=== PATIENT | female | born 1935 | race Caucasian/White ===

== ENCOUNTER 2017-12-03 21:28 | Inpatient (IN) | payer MEDICARE ==
[2017-12-03] MEDS ORDERED: Potassium Chloride 20 mEq ER Tab PO PRN (21:56)
[2017-12-03] MEDS ORDERED: Potassium Chloride 40 MEQ, Lidocaine 1% 20mL Vial 25 MG in Sodium Chloride 0.9% 250 ML IV PRN (21:56)
[2017-12-03] MEDS ORDERED: Mag Sulfate 2gm/50mL Premix 2 GM/50 ML BAG IV PRN (21:56)
[2017-12-03] MEDS ORDERED: Morphine Sulfate 2 mg/mL 1mL Syr IVP PRN (21:56)
--- NOTE | 2017-12-03 22:09 | ED Physician Chart ---
ED Chief Complaint/HPI - Patient Information Date Seen:: 12/03/17 Time Seen:: 21:50 Chief Complaint:: agitation and increased confusion History of Present Illness:: Patient's had increased agitation and increased confusion for the last 2 hours. Last September patient had a fracture of her left ankle and back. Prior to that she was slightly confused only. Allergies:: Allergies Allergy/AdvReac Type Severity Reaction Status Date / Time No Known Allergies Allergy Verified 12/03/17 22:02 Historian:: EMS, Family Member Review:: Nurse's Note Reviewed, Transfer documents Reviewed ED Review of Systems - Review of Systems General/Constitutional: No fever, No chills Skin: No skin lesions Head: No headache Eyes: No loss of vision ENT: No earache Neck: No neck pain, No swelling Cardio Vascular: No chest pain Pulmonary: No SOB GI: No nausea, No vomiting G/U: No dysuria Musculoskeletal: No bone or joint pain, No back pain Endocrine: No polyuria, No polydipsia Psychiatric: Prior psych history Hematopoietic: No bruising Allergic/Immuno: No urticaria Neurological: No syncope ED Past Medical History - Past Medical History Past Medical History: Dementia, Other (status post urinary tract infection; GERD ; major depression; sleep apnea) Family History: None Social History: Non Smoker, No Alcohol, Care Facility Surgical History: other (left ankle) Psychiatricy History: Dementia Medication: Reviewed Family Medical History - Family Member Daughter Ethnicity: Living Status: Still Living ED Physical Exam - Physical Examination General/Constitutional: Well-developed, well-nourished, Alert Other Gen/Cons comments:: Patient is agitated and keeps repeating help me, help me. Head: Atraumatic Eyes: Lids, conjuctiva normal, PERRL Skin: Nl inspection, No rash, No skin lesions, No ecchymosis ENMT: External ears, nose nl, TM canals nl Neck: No mass Respiratory: Clear to Auscultation, No Wheeze/Rhonchi/Rales Cardio Vascular: RRR, No murmur, gallop, rubs, NL S1 S2 GI: No tenderness/rebounding/guarding, No organomegaly, No hernia, Normal BS's : No CVA tenderness Other Extremities comments:: Cast left lower leg Neuro/Psych: No focal deficits ED Labs/Radiology/EKG Results - Lab Results Results: Laboratory Results - last 24 hr 12/03/17 12/03/17 22:15 22:15 WBC 10.2 RBC 3.87 Hgb 12.4 Hct 36.9 L MCV 95.5 MCH 31.9 H MCHC Differential 33.5 RDW 14.6 Plt Count 307 MPV 8.0 Neutrophils % 66.1 Lymphocytes % 17.8 L Monocytes % 12.1 H Eosinophils % 3.2 Basophils % 0.8 Sodium 137 Potassium 4.3 Chloride 103 Carbon Dioxide 28.1 Anion Gap 10.2 BUN 45 H Creatinine 1.2 Est GFR ( Amer) TNP Est GFR (Non-Af Amer) TNP BUN/Creatinine Ratio 37.5 Glucose 173 H Calcium 9.8 Magnesium 2.1 - Radiology Results Results: CXR negative - EKG Interpretations Rate & Rhythm: atrial flutter/fibrillation with a rate of 88 [place]: normal ED Septic Shock - . Is Septic Shock (SBP<90, OR Lactate>4 mmol\L) present?: No ED Reassessment (Disposition) - Diagnosis Diagnosis:: Diagnosis altered mental status; plan admit to [facility] ED Discharge Plan - Patient Disposition Admit/Discharge/Transfer: Other Care w/in this hosp
[2017-12-03 22:23] LABS: % BASOPHILS 0.8 % (0.0-2.0); % EOSINOPHILS 3.2 % (0.0-5.0); % LYMPHOCYTES 17.8 % (20.0-50.0); % MONOCYTES 12.1 % (2.0-10.0); % NEUTROPHILS 66.1 % (40.0-80.0); BASOPHILE ABSOLUTE 0.1 Th/cumm (0-0.2); EOSINOPHILE ABSOLUTE 0.3 Th/cmm (0.1-0.4); HEMATOCRIT 36.9 % (41.0-60); HEMOGLOBIN 12.4 gm/dL (12-16); LYMPHOCYTE ABSOLUTE 1.8 Th/cmm (1.5-3.0); MEAN CELL VOLUME 95.5 fl (81-100); MEAN CORPUSCULAR HEMOGLOBIN 31.9 pg (27.0-31.0); MEAN CORPUSCULAR HGB CONC 33.5 pg (28.0-36.0); MONOCYTE ABSOLUTE 1.2 Th/cmm (0.3-1.0); NEUTROPHILE ABSOLUTE 6.8 Th/cmm (1.8-8.0); PLATELET COUNT 307 Th/cmm (150-400); RED BLOOD COUNT 3.87 Mil/cmm (3.80-5.20); RED CELL DISTRIBUTION WIDTH 14.6 % (11.5-20.0); WHITE BLOOD COUNT 10.2 Th/cmm (4.8-10.8)
[2017-12-03 22:37] LABS: ANION GAP 10.2 (7.0-16.0); BUN - UREA NITROGEN 45 mg/dL (7-25); CALCIUM SERUM 9.8 mg/dL (8.6-10.3); CARBON DIOXIDE 28.1 mEq/L (21.0-31.0); CHLORIDE 103 mEq/L (98-107); CREATININE - SERUM 1.2 mg/dL (0.6-1.2); GLUCOSE 173 mg/dL (70-105); MAGNESIUM 2.1 mg/dL (1.9-2.7); POTASSIUM SERUM 4.3 mEq/L (3.5-5.1); SODIUM SERUM 137 mEq/L (136-145)
[2017-12-03 23:24] LABS: URINE MICROSCOPIC INDICATED? YES; URINE SOURCE CATH
[2017-12-03] MEDS ORDERED: Sodium Chloride 0.9% 1,000 ML IV ONE (23:33)
[2017-12-03 23:38] LABS: URINE BILIRUBIN NEGATIVE (NEGATIVE); URINE BLOOD NEGATIVE (NEGATIVE); URINE GLUCOSE (UA) NEGATIVE (NEGATIVE); URINE KETONE NEGATIVE (NEGATIVE); URINE LEUKOCYTE ESTERASE NEGATIVE (NEGATIVE); URINE NITRATE NEGATIVE (NEGATIVE); URINE PH 5.5 (4.6 - 8.0); URINE PROTEIN NEGATIVE (NEGATIVE); URINE UROBILINOGEN 0.2 E.U./dL (0.2 - 1.0)
[2017-12-03 23:41] LABS: URINE CLARITY CLEAR (CLEAR); URINE COLOR ORANGE; URINE RBC 0-2 /hpf (0-5); URINE WBC 0-2 /hpf (0-5)
[2017-12-03 23:42] LABS: URINE BACTERIA FEW /hpf (NONE SEEN); URINE EPITHELIAL CELLS FEW /lpf (FEW)
[2017-12-03] MEDS ORDERED: Sodium Chloride 0.9% 1,000 ML IV SCH (23:45)
[2017-12-04 03:56] VITALS: BP 118/69
--- NOTE | 2017-12-04 07:40 | Diagnostic Imaging Report ---
Portable chest x-ray HISTORY: Shortness of breath The heart size is difficult to assess with portable technique in a poor inspiration, but appears to be increased. Atherosclerotic calcification seen within the aorta. No acute focal pulmonary processes. IMPRESSION: 1. No acute focal pulmonary processes 2. Suggestion cardiomegaly with atherosclerotic vascular changes
[2017-12-04] MEDS ORDERED: Haloperidol Lactate 5 mg/mL 1mL Vial ONE (09:02)
[2017-12-04] MEDS ORDERED: Haloperidol Lactate 5 mg/mL 1mL Vial IM ONE (09:07)
[2017-12-04] MEDS: Diltiazem CD 180 mg C24 PO SCH (09:09)
[2017-12-04] MEDS: Aspirin 81mg Chewable Tab PO SCH (09:09)
[2017-12-04] MEDS ORDERED: chlorproMAZINE 25 mg/mL 2mL Amp IM ONE (11:52)
[2017-12-04] MEDS ORDERED: chlorproMAZINE 25 mg/mL 2mL Amp ONE (11:52)
--- NOTE | 2017-12-04 11:52 | History and Physical ---
History of Present Illness - HPI Chief Complaint: ALOC HPI: An 82 year old female presents from [facility] with the complaint of ALOC for one week. The patient was recently admitted for encephalopathy and for PT due to her left LE orif. She was acting appropriately upon admission, however, she became more confused and combative towards the staff. Vital Signs: Last Vital Signs Temp 97 F 12/04/17 06:47 Pulse 86 12/04/17 06:47 Resp 19 12/04/17 06:47 BP 136/73 12/04/17 06:47 Pulse Ox 94 12/04/17 06:47 Past Medical History Cardiovascular: Report: AFIB, HTN, Hyperlipidemia Pulmonary: Report: No Pertinent Hx DRUG WORKER: Report: No Pertinent Hx, Other (aloc) GI: Report: No Pertinent Hx Psych: Report: Anxiety, Depression, Psychosis Musculoskeletal: Report: Osteoarthritis, Other (left le pain) Rheumatologic: Report: No pertinent Hx Infectious Disease: Report: No Pertinent Hx Renal/: Report: No Pertinent Hx Endocrine: Report: No Pertinent Hx Dermatology: Report: No Pertinent Hx Family Medical History - Family Member Daughter History Unknown: Yes Ethnicity: Living Status: Still Living Social History Smoke: No Alcohol: None Drugs: None Lives: With Family Domestic Violence: Negative - Medications Home Medications: Home Medication Medication Instructions Recorded Type Acetaminophen [Tylenol] 650 mg PO Q6HR PRN 12/03/17 History Aspirin 81 mg PO DAILY 12/03/17 History Atorvastatin Calcium [Lipitor] 10 mg PO HS 12/03/17 History Citalopram Hydrobromide 10 mg PO DAILY 12/03/17 History [Citalopram HBr] Diltiazem HCl [Cartia Xt] 180 mg PO DAILY 12/03/17 History Donepezil Hcl [Aricept] 5 mg PO HS 12/03/17 History Famotidine [Pepcid*] 40 mg PO DAILY 12/03/17 History Gabapentin 600 mg PO BID 12/03/17 History Hydrocodone/APAP 10 mg/325 mg 1 tab PO Q6H PRN 12/03/17 History [[place] 10 mg/325 mg] Lisinopril 10 mg PO DAILY 12/03/17 History Memantine [Namenda] 5 mg PO BID 12/03/17 History Pyridoxine [Vitamin B6] 50 mg PO DAILY 12/03/17 History Risperidone [Risperdal*] 0.25 mg PO BID 12/03/17 History Trazodone HCl 50 mg PO HS PRN 12/03/17 History - Allergies Allergies/Adverse Reactions: Allergies Allergy/AdvReac Type Severity Reaction Status Date / Time No Known Allergies Allergy Verified 12/03/17 22:02 Review of Systems - Review of Systems Review of Systems: Unable to obtain due to the patients acute encephalopathy Constitutional: Report: No Significant Eyes: Report: No Significant ENT: Report: No Significant Respiratory: Report: No Significant Cardiovascular: Report: No Significant Gastrointestinal: Report: No Significant Genitourinary: Report: No Significant Musculoskeletal: Report: No Significant Skin: Report: No Significant Neurological: Report: No Significant Physical Exam - Physical Exam HEENT: Report: Pale Conjunctiva Neck: Report: Within normal limits Cardiovascular Systems: Report: +s1/s2 noted, Regular, Rate and Rhythm Respiratory: Report: Breath Sounds are within normal limits, Clear to Auscultation of lung ames Abdomen: Report: Bowel Sounds are within normal limits Back: Report: Inspection of back is within normal limits. Extremities: Report: Other (Left LE cast in place) Skin: Report: Color of skin is within normal limits - Assessment Assessment: metabolic encephalopathy impulse control do mdd margot oa muscle weakness unsteady gait - Plan Plan: admit to [facility]. Zosyn was discontinued. Levaquin was started. Psych is following. Home emdications have been continued. Psychotrophic medications as needed. Pain control.
--- NOTE | 2017-12-04 17:33 | Psychosocial Evaluation ---
DATE OF SERVICE: 12/04/2017 JUSTIFICATION FOR HOSPITALIZATION: Increased agitation, increased confusion, yelling, screaming. CHIEF COMPLAINT: "I want to go back. I want to go back to you. I want to go back to you." HISTORY OF PRESENT ILLNESS: An 82-year-old female who I saw at [facility] yelling, screaming unruly behaviors, yelling nonsensically, yelling over and over again stating, "I want to go back to you. I want to go back to you." The patient is not answering any questions, is not a very good historian. PAST PSYCHIATRIC HISTORY: It seems she has a history of dementia, psychosis, unspecified. Mood, unspecified. Anxiety, unspecified. Unruly behaviors at the shelter. SOCIAL HISTORY: is involved. Daughter is involved. The patient had been living at [facility], but could not be cared for given her behaviors. MEDICAL HISTORY: GERD, UTI, and sleep apnea. MEDICATIONS: Noted. MENTAL STATUS EXAMINATION: Stated age, yelling, screaming, not answering any questions, repetitive, no suicidal gestures, seems ruminative, possibly delusional, poor insight, and poor judgment. PROVISIONAL DIAGNOSES: 1. Dementia with behaviors. 2. Psychosis, unspecified. 3. Mood, unspecified. 4. Anxiety, unspecified. MEDICAL: Please see full H and P. RECOMMENDATIONS AND PLAN: The patient is on risperidone with a little efficacy. We will consider Depakote. Given her ongoing symptoms, she is not safe for discharge. CONDITIONS FOR DISCHARGE: Improved mood, improved affect, cessation of her screaming and yelling and psychotic signs and symptoms. [facility]# [id number]
[2017-12-04] MEDS: Atorvastatin Calcium 10 MG TAB PO SCH (21:07)
[2017-12-05] MEDS: Hydrocodone/APAP 10 mg/325 mg Tab PO PRN (05:48)
[2017-12-05 07:07] LABS: EOSINOPHILE ABSOLUTE 0.2 Th/cmm (0.1-0.4); HEMATOCRIT 35.2 % (41.0-60); HEMOGLOBIN 11.8 gm/dL (12-16); LYMPHOCYTE ABSOLUTE 1.4 Th/cmm (1.5-3.0); MANUAL DIFF REQUIRED? YES; MEAN CELL VOLUME 94.9 fl (81-100); MEAN CORPUSCULAR HEMOGLOBIN 31.8 pg (27.0-31.0); MEAN CORPUSCULAR HGB CONC 33.4 pg (28.0-36.0); MONOCYTE ABSOLUTE 1.2 Th/cmm (0.3-1.0); NEUTROPHILE ABSOLUTE 4.6 Th/cmm (1.8-8.0); PLATELET COUNT 282 Th/cmm (150-400); RED BLOOD COUNT 3.71 Mil/cmm (3.80-5.20); RED CELL DISTRIBUTION WIDTH 13.9 % (11.5-20.0)
[2017-12-05 07:15] LABS: WHITE BLOOD COUNT 7.4 Th/cmm (4.8-10.8)
[2017-12-05 07:42] LABS: ANION GAP 7.5 (7.0-16.0); BUN - UREA NITROGEN 34 mg/dL (7-25); CALCIUM SERUM 9.6 mg/dL (8.6-10.3); CARBON DIOXIDE 27.6 mEq/L (21.0-31.0); CHLORIDE 105 mEq/L (98-107); CREATININE - SERUM 0.7 mg/dL (0.6-1.2); GLUCOSE 165 mg/dL (70-105); POTASSIUM SERUM 4.1 mEq/L (3.5-5.1); SODIUM SERUM 136 mEq/L (136-145)
[2017-12-05] MEDS ORDERED: Haloperidol Lactate 5 mg/mL 1mL Vial IM ONE (08:02)
[2017-12-05] MEDS ORDERED: Haloperidol Lactate 5 mg/mL 1mL Vial ONE (08:02)
[2017-12-05 09:20] LABS: EOSINOPHIL 1 % (0-5); LYMPHOCYTE 17 % (20-50); MONOCYTE 17 % (2-10); NEUTROPHILS 65 % (40-80); TOTAL CELLS COUNTED 100
[2017-12-05 09:21] LABS: PLATELET ESTIMATE ADEQUATE (NORMAL)
[2017-12-05] MEDS: Aspirin 81mg Chewable Tab PO SCH ×2 (09:21→09:37)
[2017-12-05] MEDS: Diltiazem CD 180 mg C24 PO SCH ×2 (09:21→09:37)
--- NOTE | 2017-12-05 16:54 | Progress Notes ---
DATE: 12/05/[address] Everardo Mahmood. Case was discussed with staff of the patient, reviewed records. This is an 82-year-old female who was admitted yesterday. She came from [facility], was seen by Dr. Mahmood. Today, she was yelling and screaming, unruly behavior. She continues to yell and scream this morning on the unit, not making sense. Unable to respond to any specific questions or participate in meaningful conversation, diagnosed with dementia, very irritable, very poor insight, needing redirection and I already have given her an order for Haldol, Ativan and Benadryl. She is still yelling and screaming. Dr. Mahmood initiated Seroquel on her; however, I signed the consent this morning, so she could take it and we will see how it affected her. She is on Aricept 5 mg at bedtime, Neurontin 600 mg twice a day. She is on Seroquel 12.5 mg twice a day and 25 mg at bedtime and I can really increase the dose yet to see how she takes it and we will continue to work with the patient in group therapy, milieu therapy, adjust medication as needed. JOB# [id number]
[2017-12-05] MEDS: Atorvastatin Calcium 10 MG TAB PO SCH (21:16)
[2017-12-06 07:06] LABS: EOSINOPHILE ABSOLUTE 0.2 Th/cmm (0.1-0.4); HEMATOCRIT 36.9 % (41.0-60); HEMOGLOBIN 12.4 gm/dL (12-16); MANUAL DIFF REQUIRED? YES; MEAN CELL VOLUME 95.1 fl (81-100); MEAN CORPUSCULAR HGB CONC 33.6 pg (28.0-36.0); MEAN PLATELET VOLUME 7.8 fl; MONOCYTE ABSOLUTE 1.2 Th/cmm (0.3-1.0); NEUTROPHILE ABSOLUTE 4.3 Th/cmm (1.8-8.0); PLATELET COUNT 298 Th/cmm (150-400); RED BLOOD COUNT 3.88 Mil/cmm (3.80-5.20); RED CELL DISTRIBUTION WIDTH 13.9 % (11.5-20.0); WHITE BLOOD COUNT 7.7 Th/cmm (4.8-10.8)
[2017-12-06 07:17] LABS: ANION GAP 13.3 (7.0-16.0); BUN - UREA NITROGEN 28 mg/dL (7-25); CALCIUM SERUM 9.7 mg/dL (8.6-10.3); CARBON DIOXIDE 27.7 mEq/L (21.0-31.0); CHLORIDE 102 mEq/L (98-107); CREATININE - SERUM 0.7 mg/dL (0.6-1.2); GLUCOSE 125 mg/dL (70-105); SODIUM SERUM 139 mEq/L (136-145)
[2017-12-06] MEDS: Diltiazem CD 180 mg C24 PO SCH (10:08)
[2017-12-06] MEDS: Aspirin 81mg Chewable Tab PO SCH (10:08)
[2017-12-06 11:41] LABS: LYMPHOCYTE 27 % (20-50); MONOCYTE 14 % (2-10); NEUTROPHILS 59 % (40-80); TOTAL CELLS COUNTED 100
[2017-12-06 11:42] LABS: PLATELET ESTIMATE ADEQUATE (NORMAL)
[2017-12-06] MEDS ORDERED: Guaifenesin DM 10 ML UDC PO PRN (18:55)
[2017-12-06] MEDS: Atorvastatin Calcium 10 MG TAB PO SCH (21:22)
--- NOTE | 2017-12-06 22:16 | Progress Notes ---
DATE: 12/06/[address] Everardo Mahmood. Case was discussed with staff of the patient, reviewed records. The patient is a bit calmer today. She is able to eat. Her family was here feeding her. She is sleeping better, but however, continues to be unpredictable and impulsive with episodes of severe agitation, yelling and screaming. No side effects with the medication, no sedation, no nausea. I did increase her Seroquel dose yesterday to 25 mg at bedtime and 12.5 mg twice a day with no side effects, no sedation, no nausea and extrapyramidal symptoms. We will continue to work with the patient in group therapy, milieu therapy, adjust medication as needed. JOB# [id number]
[2017-12-07 09:35] LABS: % BASOPHILS 0.1 % (0.0-2.0); % EOSINOPHILS 1.2 % (0.0-5.0); % LYMPHOCYTES 25.6 % (20.0-50.0); % MONOCYTES 12.3 % (2.0-10.0); % NEUTROPHILS 60.8 % (40.0-80.0); EOSINOPHILE ABSOLUTE 0.1 Th/cmm (0.1-0.4); HEMATOCRIT 36.6 % (41.0-60); HEMOGLOBIN 12.4 gm/dL (12-16); MEAN CELL VOLUME 94.6 fl (81-100); MEAN CORPUSCULAR HEMOGLOBIN 32.1 pg (27.0-31.0); MEAN CORPUSCULAR HGB CONC 33.9 pg (28.0-36.0); MEAN PLATELET VOLUME 7.7 fl; NEUTROPHILE ABSOLUTE 4.8 Th/cmm (1.8-8.0); PLATELET COUNT 281 Th/cmm (150-400); RED BLOOD COUNT 3.87 Mil/cmm (3.80-5.20); WHITE BLOOD COUNT 7.9 Th/cmm (4.8-10.8)
--- NOTE | 2017-12-07 09:42 | Diagnostic Imaging Report ---
CHEST X-RAY: AP view INDICATION: Coughing COMPARISON: 12/03/2017 FINDINGS: Low lung volumes are noted with no focal consolidation or effusions. Chronic lung changes are noted with left basal subsegmental atelectasis or scarring. Cardiomegaly is noted with atherosclerosis. IMPRESSION: Chronic interstitial lung changes and low lung volumes. No focal consolidation identified Cardiomegaly and atherosclerotic vascular disease.
[2017-12-07 09:48] LABS: ANION GAP 11.5 (7.0-16.0); BUN - UREA NITROGEN 21 mg/dL (7-25); CALCIUM SERUM 9.3 mg/dL (8.6-10.3); CARBON DIOXIDE 26.2 mEq/L (21.0-31.0); CHLORIDE 104 mEq/L (98-107); CREATININE - SERUM 0.7 mg/dL (0.6-1.2); GLUCOSE 194 mg/dL (70-105); POTASSIUM SERUM 3.7 mEq/L (3.5-5.1); SODIUM SERUM 138 mEq/L (136-145)
[2017-12-07] MEDS: Aspirin 81mg Chewable Tab PO SCH (16:11)
[2017-12-07] MEDS: Diltiazem CD 180 mg C24 PO SCH (16:11)
--- NOTE | 2017-12-07 19:04 | Progress Notes ---
DATE: 12/07/2017 SUBJECTIVE: The patient in the hospital with increased agitation, increased confusion, stating "take me now, take me now, take me now" does not know where she is, does not know why she is here, does not know that she is in the hospital, just states that she is in [place], yelling and screaming nonsensically, highly impulsive, unpredictable, history of dementia with behavioral disturbances. Over the weekend, Dr. Aguero is noting that the patient remains symptomatic, odd, yelling and screaming. ASSESSMENT: The patient remains symptomatic, still odd, bizarre, appearing despairing, still with ongoing symptoms. PLAN: We will continue to monitor. We will be increasing her Seroquel night time dosing to 37.5 mg. JOB# [id number]
[2017-12-07] MEDS: Atorvastatin Calcium 10 MG TAB PO SCH (21:40)
[2017-12-08] MEDS: Hydrocodone/APAP 10 mg/325 mg Tab PO PRN (04:44)
[2017-12-08 10:27] LABS: % BASOPHILS 0.5 % (0.0-2.0); % EOSINOPHILS 1.4 % (0.0-5.0); % LYMPHOCYTES 31.3 % (20.0-50.0); % MONOCYTES 14.6 % (2.0-10.0); % NEUTROPHILS 52.2 % (40.0-80.0); EOSINOPHILE ABSOLUTE 0.1 Th/cmm (0.1-0.4); HEMATOCRIT 36.8 % (41.0-60); HEMOGLOBIN 12.5 gm/dL (12-16); LYMPHOCYTE ABSOLUTE 2.3 Th/cmm (1.5-3.0); MEAN CELL VOLUME 94.3 fl (81-100); MEAN CORPUSCULAR HEMOGLOBIN 32.2 pg (27.0-31.0); MEAN CORPUSCULAR HGB CONC 34.1 pg (28.0-36.0); MEAN PLATELET VOLUME 7.8 fl; MONOCYTE ABSOLUTE 1.1 Th/cmm (0.3-1.0); PLATELET COUNT 264 Th/cmm (150-400); RED CELL DISTRIBUTION WIDTH 13.6 % (11.5-20.0); WHITE BLOOD COUNT 7.5 Th/cmm (4.8-10.8)
[2017-12-08 10:48] LABS: ANION GAP 7.9 (7.0-16.0); BUN - UREA NITROGEN 23 mg/dL (7-25); CALCIUM SERUM 9.3 mg/dL (8.6-10.3); CARBON DIOXIDE 26.5 mEq/L (21.0-31.0); CHLORIDE 106 mEq/L (98-107); CREATININE - SERUM 0.7 mg/dL (0.6-1.2); GLUCOSE 162 mg/dL (70-105); POTASSIUM SERUM 3.4 mEq/L (3.5-5.1); SODIUM SERUM 137 mEq/L (136-145)
[2017-12-08] MEDS: Aspirin 81mg Chewable Tab PO SCH (17:05)
[2017-12-08] MEDS: Diltiazem CD 180 mg C24 PO SCH (17:05)
--- NOTE | 2017-12-08 17:56 | Progress Notes ---
DATE: 12/08/2017 The patient still has agitation, responding to internal stimuli, talking to self, highly pressured, still yelling and asking over and over again, "what is her name, what is her name, what is her name," I do not know who she is talking about. Staff concerned given her ongoing psychotic behaviors. ASSESSMENT: The patient with pressured speech, restless, yelling, still psychotic. MEDICATIONS: Noted. PLAN: We will continue to monitor. The patient remains highly symptomatic. Given ongoing symptoms, she is not safe for a lower level of care at this time. I will make a small adjustment to her Seroquel and increase nighttime Seroquel to 50 mg. [facility]# [id number]
[2017-12-08] MEDS: Atorvastatin Calcium 10 MG TAB PO SCH (21:11)
[2017-12-09] MEDS: Aspirin 81mg Chewable Tab PO SCH (08:49)
[2017-12-09] MEDS: Diltiazem CD 180 mg C24 PO SCH (08:54)
--- NOTE | 2017-12-09 10:36 | General Progress Note ---
Subjective - Review of Systems Service Date: 12/09/17 Subjective: Pt seen and eval. has labile mood. BS have been fluctuating. Per daughter's request, I called her and answered all her questions. Upon further investigation, daughter admitted she made up the TB story because she wanted to make sure her mom's lungs are clear. I discussed chest x ray results with her. Also, confirmed that the pt has never been diagnoses with TB. Provided reassurance to daughter. No n,v,d or cp. No fevers or chills. No cough. Objective - Results Result Diagrams: 12/08/17 10:00 12/08/17 10:00 Recent Labs: Laboratory Last Values WBC 7.5 Th/cmm (4.8-10.8) 12/08/17 10:00 RBC 3.90 Mil/cmm (3.80-5.20) 12/08/17 10:00 Hgb 12.5 gm/dL (12-16) 12/08/17 10:00 Hct 36.8 % (41.0-60) L 12/08/17 10:00 MCV 94.3 fl (81-100) 12/08/17 10:00 MCH 32.2 pg (27.0-31.0) H 12/08/17 10:00 MCHC Differential 34.1 pg (28.0-36.0) 12/08/17 10:00 RDW 13.6 % (11.5-20.0) 12/08/17 10:00 Plt Count 264 Th/cmm (150-400) 12/08/17 10:00 MPV 7.8 fl 12/08/17 10:00 Neutrophils % 52.2 % (40.0-80.0) 12/08/17 10:00 Lymphocytes % 31.3 % (20.0-50.0) 12/08/17 10:00 Monocytes % 14.6 % (2.0-10.0) H 12/08/17 10:00 Eosinophils % 1.4 % (0.0-5.0) 12/08/17 10:00 Basophils % 0.5 % (0.0-2.0) 12/08/17 10:00 Neutrophils (Manual) 59 % (40-80) 12/06/17 06:36 Lymphocytes 27 % (20-50) 03/04/18 06:36 Monocytes 14 % (2-10) H 12/06/17 06:36 Eosinophils 1 % (0-5) 12/05/17 06:45 Platelet Estimate ADEQUATE (NORMAL) 12/06/17 06:36 Sodium 137 mEq/L (136-145) 12/08/17 10:00 Potassium 3.4 mEq/L (3.5-5.1) L 12/08/17 10:00 Chloride 106 mEq/L (98-107) 12/08/17 10:00 Carbon Dioxide 26.5 mEq/L (21.0-31.0) 12/08/17 10:00 Anion Gap 7.9 (7.0-16.0) 12/08/17 10:00 BUN 23 mg/dL (7-25) 12/08/17 10:00 Creatinine 0.7 mg/dL (0.6-1.2) 12/08/17 10:00 Est GFR ( Amer) TNP 12/08/17 10:00 Est GFR (Non-Af Amer) TNP 12/08/17 10:00 BUN/Creatinine Ratio 32.9 12/08/17 10:00 Glucose 162 mg/dL (70-105) H 12/08/17 10:00 Hemoglobin A1c % 5.0 % (4.0-6.0) 12/03/17 22:15 Calcium 9.3 mg/dL (8.6-10.3) 12/08/17 10:00 Magnesium 2.1 mg/dL (1.9-2.7) 12/03/17 22:15 Urine Source CATH 12/03/17 23:20 Urine Color ORANGE 12/03/17 23:20 Urine Clarity CLEAR (CLEAR) 12/03/17 23:20 Urine pH 5.5 (4.6 - 8.0) 12/03/17 23:20 Ur Specific [place] 1.025 (1.005-1.030) 12/03/17 23:20 Urine Protein NEGATIVE mg/dL (NEGATIVE) 12/03/17 23:20 Urine Glucose (UA) NEGATIVE mg/dL (NEGATIVE) 12/03/17 23:20 Urine Ketones NEGATIVE mg/dL (NEGATIVE) 12/03/17 23:20 Urine Blood NEGATIVE (NEGATIVE) 12/03/17 23:20 Urine Nitrate NEGATIVE (NEGATIVE) 12/03/17 23:20 Urine Bilirubin NEGATIVE (NEGATIVE) 12/03/17 23:20 Urine Urobilinogen 0.2 E.U./dL (0.2 - 1.0) 12/03/17 23:20 Ur Leukocyte Esterase NEGATIVE (NEGATIVE) 12/03/17 23:20 Urine RBC 0-2 /hpf (0-5) 12/03/17 23:20 Urine WBC 0-2 /hpf (0-5) 12/03/17 23:20 Ur Epithelial Cells FEW /lpf (FEW) 12/03/17 23:20 Urine Bacteria FEW /hpf (NONE SEEN) 12/03/17 23:20 - Physical Exam Vitals and I&O: Vital Signs Temp 97.5 F 12/09/17 07:10 Pulse 113 12/09/17 08:54 Resp 19 12/09/17 07:10 BP 120/72 12/09/17 08:53 Pulse Ox 94 12/09/17 07:10 Intake & Output 12/08/17 12/09/17 12/09/17 18:59 06:59 18:59 Intake Total 980 250 Balance 980 250 Intake: Oral 980 250 Other: # Voids 3 2 # Bowel Movements 0 0 Active Medications: Current Medications Acetaminophen (Tylenol) 650 mg PO Q6H PRN PRN Reason: HEADACHE/TEMP ABOVE 100F Stop: 02/01/18 21:55 Acetaminophen/Hydrocodone Bitart ([place] 10 Mg/325 Mg) 1 tab PO Q6H PRN PRN Reason: Pain (Moderate) Stop: 02/02/18 06:52 Last Admin: 12/08/17 04:44 Dose: 1 tab Aspirin (Aspirin Chewable) 81 mg PO DAILY [facility] Stop: 02/02/18 08:59 Last Admin: 12/09/17 08:49 Dose: 81 mg Atorvastatin Calcium (Lipitor) 10 mg PO HS [facility]ADIA PRN Reason: Protocol Stop: 02/02/18 20:59 Last Admin: 12/08/17 21:11 Dose: 10 mg Diltiazem HCl (Cardizem Cd) 180 mg PO DAILY [facility] Stop: 02/02/18 08:59 Last Admin: 12/09/17 08:54 Dose: 180 mg Docusate Sodium (Colace) 100 mg PO BID PRN PRN Reason: Constipation Stop: 02/01/18 21:55 Donepezil HCl (Aricept) 5 mg PO HS [facility] Stop: 02/02/18 20:59 Last Admin: 12/08/17 21:11 Dose: 5 mg Famotidine (Pepcid) 40 mg PO DAILY [facility] Stop: 02/02/18 08:59 Last Admin: 12/09/17 08:48 Dose: 40 mg Gabapentin (Neurontin) 600 mg PO BID [facility] Stop: 02/02/18 08:59 Last Admin: 12/09/17 08:51 Dose: 600 mg Guaifenesin/Dextromethorphan (Robitussin Dm) 10 ml PO Q4HR PRN PRN Reason: Cough Stop: 12/09/17 18:54 Heparin Sodium (Porcine) (Heparin) 5,000 units SUBQ Q12HR [facility] Stop: 02/02/18 08:59 Last Admin: 12/09/17 08:51 Dose: 5,000 units Lisinopril (Zestril) 10 mg PO DAILY [facility] Stop: 02/02/18 08:59 Last Admin: 12/09/17 08:53 Dose: 10 mg Lorazepam (Ativan) 0.5 mg PO Q4HR PRN; Protocol PRN Reason: Anxiety Stop: 01/03/18 01:29 Last Admin: 12/09/17 08:51 Dose: 0.5 mg Magnesium Oxide (Mag-Oxide) 400 mg PO BID PRN PRN Reason: Mg less than 1.9 Stop: 02/01/18 21:55 Memantine (Namenda) 5 mg PO BID [facility] Stop: 02/02/18 08:59 Last Admin: 12/09/17 08:50 Dose: 5 mg Potassium Chloride (Klor-Con) 40 meq PO DAILY PRN PRN Reason: k level less than 3.5 Stop: 02/01/18 21:55 Quetiapine Fumarate (Seroquel) 12.5 mg PO BID [facility] PRN Reason: Protocol Stop: 02/02/18 16:59 Last Admin: 12/09/17 08:52 Dose: 12.5 mg Quetiapine Fumarate (Seroquel) 50 mg PO HS [facility] PRN Reason: Protocol Stop: 02/06/18 11:02 Last Admin: 12/08/17 21:12 Dose: 50 mg Trazodone HCl (Desyrel) 50 mg PO HS PRN; Protocol PRN Reason: Insomnia Stop: 02/02/18 20:59 Last Admin: 12/04/17 21:08 Dose: 50 mg Zolpidem Tartrate (Ambien) 5 mg PO HS PRN PRN Reason: Insomnia Stop: 02/02/18 06:37 Last Admin: 12/08/17 21:11 Dose: 5 mg General: No acute distress HEENT: Atraumatic, PERRLA, EOMI Neck: Supple, JVD, Thyromegaly Cardiovascular: Regular rate, Normal S1 Lungs: Clear to auscultation, Normal air movement Assessment/Plan - Assessment Assessment: metabolic encephalopathy impulse control do mdd margot oa muscle weakness unsteady gait - Plan Plan: Had a long discussion with daughter. Reviewed CXR and all labs results with her. continue bp monitoring. FU on blood sugars. HgBA1c is 5.0. Fu with psych as well.
[2017-12-09 14:08] LABS: % BASOPHILS 0.3 % (0.0-2.0); % EOSINOPHILS 1.1 % (0.0-5.0); % LYMPHOCYTES 33.1 % (20.0-50.0); % MONOCYTES 11.1 % (2.0-10.0); % NEUTROPHILS 54.4 % (40.0-80.0); EOSINOPHILE ABSOLUTE 0.1 Th/cmm (0.1-0.4); HEMATOCRIT 35.5 % (41.0-60); HEMOGLOBIN 11.8 gm/dL (12-16); LYMPHOCYTE ABSOLUTE 2.5 Th/cmm (1.5-3.0); MEAN CORPUSCULAR HEMOGLOBIN 31.7 pg (27.0-31.0); MEAN CORPUSCULAR HGB CONC 33.4 pg (28.0-36.0); MEAN PLATELET VOLUME 7.4 fl; MONOCYTE ABSOLUTE 0.9 Th/cmm (0.3-1.0); NEUTROPHILE ABSOLUTE 4.2 Th/cmm (1.8-8.0); PLATELET COUNT 226 Th/cmm (150-400); RED BLOOD COUNT 3.73 Mil/cmm (3.80-5.20); RED CELL DISTRIBUTION WIDTH 13.6 % (11.5-20.0); WHITE BLOOD COUNT 7.7 Th/cmm (4.8-10.8)
[2017-12-09 14:22] LABS: ANION GAP 8.5 (7.0-16.0); BUN - UREA NITROGEN 27 mg/dL (7-25); CALCIUM SERUM 9.1 mg/dL (8.6-10.3); CARBON DIOXIDE 26.9 mEq/L (21.0-31.0); CHLORIDE 105 mEq/L (98-107); CREATININE - SERUM 0.6 mg/dL (0.6-1.2); GLUCOSE 160 mg/dL (70-105); POTASSIUM SERUM 3.4 mEq/L (3.5-5.1); SODIUM SERUM 137 mEq/L (136-145)
--- NOTE | 2017-12-09 17:26 | Progress Notes ---
DATE: 12/09/2017 The patient remains agitated, responding to internal stimuli, talking to staff, however she is calmer. Staff noting less screaming episodes, less yelling episodes, seems to be tolerant of treatment, not answering any questions today but staff noting she has been significantly calmer. ASSESSMENT: The patient seems to be calmer, more redirectable, tolerant to treatment. PLAN: We will continue to monitor. I will reach out to daughter today. Given her ongoing symptoms, she is not safe for discharge at this time but some improvement has been noted. JOB# [id number]
[2017-12-09] MEDS: Atorvastatin Calcium 10 MG TAB PO SCH (21:29)
[2017-12-09] MEDS: Hydrocodone/APAP 10 mg/325 mg Tab PO PRN (22:22)
[2017-12-10] MEDS: Aspirin 81mg Chewable Tab PO SCH (09:38)
[2017-12-10] MEDS: Diltiazem CD 180 mg C24 PO SCH (09:41)
[2017-12-10] MEDS: Hydrocodone/APAP 10 mg/325 mg Tab PO PRN (14:23)
--- NOTE | 2017-12-10 16:15 | Progress Notes ---
DATE: 12/09/2017 The patient still remains sometimes agitated, responding to internal stimuli, talking to self. She is somewhat calmer, less screaming episodes. I did contact daughter yesterday, left a message, never heard back from her, we will try again this afternoon. The patient not making any sense, not a good historian. ASSESSMENT: The patient is somewhat calmer and more redirectable, tolerant to treatment. It seems she is making an improvement. She does still become unruly. PLAN: We will continue to monitor, increase bedtime dose of Seroquel. We will contact daughter. JOB# [id number]
[2017-12-10] MEDS: Atorvastatin Calcium 10 MG TAB PO SCH (21:03)
[2017-12-11] MEDS: Diltiazem CD 180 mg C24 PO SCH (08:28)
[2017-12-11] MEDS: Aspirin 81mg Chewable Tab PO SCH (08:29)
[2017-12-11] MEDS: Guaifenesin DM 10 ML UDC PO PRN (17:39)
--- NOTE | 2017-12-11 19:58 | Progress Notes ---
DATE: 12/10/2017 SUBJECTIVE: The patient remains calmer, still responding to internal stimuli, mumbling to self, but overall less yelling, less screaming episodes. I did speak with yesterday. I did answer his questions. He was appreciative of the call. I did update him as well. I was trying to reach the daughter, but I have not been able to have call a few times. The patient is a poor historian, not answering really any questions appropriately. She remained somewhat isolative. ASSESSMENT: Calmer. The patient more redirectable, still impulsive, unpredictable, still yelling at times, but overall seems to be improving. PLAN: We will continue to monitor. The patient is tolerating treatment. We are trying to find a safe discharge plan in place for her to go to. JOB# [id number]
[2017-12-11] MEDS: Atorvastatin Calcium 10 MG TAB PO SCH (20:59)
[2017-12-12] MEDS: Diltiazem CD 180 mg C24 PO SCH (09:03)
[2017-12-12] MEDS: Aspirin 81mg Chewable Tab PO SCH (09:05)
[2017-12-12] MEDS: Atorvastatin Calcium 10 MG TAB PO SCH (20:52)
--- NOTE | 2017-12-13 05:42 | Progress Notes ---
DATE: 12/12/2017 COVERING FOR: Dr. Mahmood. Chart reviewed and the patient interviewed. Also discussed the patient's condition on the staff and reviewed records and labs. The patient is still actively hallucinating and talking to herself. She also is still confused. She also seems to be responding to stimuli. The patient also still have episodes of yelling and screaming, but seems to be less than before. Otherwise, the patient is compliant with taking her medications with no side effects of medications. ASSESSMENT: The patient is still yelling and screaming and has unpredictable behavior. TREATMENT PLAN: Continue to monitor her behavior closely. The patient also continued to take Aricept 5 mg every day and Neurontin 600 mg twice a day as well as Namenda 5 mg twice a day. She has also continued to take Seroquel in a dose of 12.5 mg twice a day and 62.5 mg at bedtime with no side effects. JOB# [id number]
[2017-12-13] MEDS: Aspirin 81mg Chewable Tab PO SCH (08:33)
[2017-12-13] MEDS: Diltiazem CD 180 mg C24 PO SCH (08:34)
[2017-12-13] MEDS: Guaifenesin DM 10 ML UDC PO PRN (08:51)
[2017-12-13] MEDS: Atorvastatin Calcium 10 MG TAB PO SCH (21:19)
--- NOTE | 2017-12-14 09:17 | General Progress Note ---
Subjective - Review of Systems Service Date: 12/14/17 Subjective: Pt seen and eval. has labile mood. Reviewed all labs. Pt's daughter asked me to see her as she thought she was coughing. She has cough syrup. No fevers or chills. Objective - Results Result Diagrams: 12/09/17 14:00 12/09/17 14:00 Recent Labs: Laboratory Last Values WBC 7.7 Th/cmm (4.8-10.8) 12/09/17 14:00 RBC 3.73 Mil/cmm (3.80-5.20) L 12/09/17 14:00 Hgb 11.8 gm/dL (12-16) L 12/09/17 14:00 Hct 35.5 % (41.0-60) L 12/09/17 14:00 MCV 95.0 fl (81-100) 12/09/17 14:00 MCH 31.7 pg (27.0-31.0) H 12/09/17 14:00 MCHC Differential 33.4 pg (28.0-36.0) 12/09/17 14:00 RDW 13.6 % (11.5-20.0) 12/09/17 14:00 Plt Count 226 Th/cmm (150-400) 12/09/17 14:00 MPV 7.4 fl 12/09/17 14:00 Neutrophils % 54.4 % (40.0-80.0) 12/09/17 14:00 Lymphocytes % 33.1 % (20.0-50.0) 12/09/17 14:00 Monocytes % 11.1 % (2.0-10.0) H 12/09/17 14:00 Eosinophils % 1.1 % (0.0-5.0) 12/09/17 14:00 Basophils % 0.3 % (0.0-2.0) 12/09/17 14:00 Neutrophils (Manual) 59 % (40-80) 12/06/17 06:36 Lymphocytes 27 % (20-50) 12/06/17 06:36 Monocytes 14 % (2-10) H 12/06/17 06:36 Eosinophils 1 % (0-5) 12/05/17 06:45 Platelet Estimate ADEQUATE (NORMAL) 12/06/17 06:36 Sodium 137 mEq/L (136-145) 12/09/17 14:00 Potassium 3.4 mEq/L (3.5-5.1) L 12/09/17 14:00 Chloride 105 mEq/L (98-107) 12/09/17 14:00 Carbon Dioxide 26.9 mEq/L (21.0-31.0) 12/09/17 14:00 Anion Gap 8.5 (7.0-16.0) 12/09/17 14:00 BUN 27 mg/dL (7-25) H 12/09/17 14:00 Creatinine 0.6 mg/dL (0.6-1.2) 12/09/17 14:00 Est GFR ( Amer) TNP 12/09/17 14:00 Est GFR (Non-Af Amer) TNP 12/09/17 14:00 BUN/Creatinine Ratio 45.0 12/09/17 14:00 Glucose 160 mg/dL (70-105) H 12/09/17 14:00 Hemoglobin A1c % 5.0 % (4.0-6.0) 12/03/17 22:15 Calcium 9.1 mg/dL (8.6-10.3) 12/09/17 14:00 Magnesium 2.1 mg/dL (1.9-2.7) 12/03/17 22:15 Urine Source CATH 12/03/17 23:20 Urine Color ORANGE 12/03/17 23:20 Urine Clarity CLEAR (CLEAR) 12/03/17 23:20 Urine pH 5.5 (4.6 - 8.0) 12/03/17 23:20 Ur Specific [place] 1.025 (1.005-1.030) 12/03/17 23:20 Urine Protein NEGATIVE mg/dL (NEGATIVE) 12/03/17 23:20 Urine Glucose (UA) NEGATIVE mg/dL (NEGATIVE) 12/03/17 23:20 Urine Ketones NEGATIVE mg/dL (NEGATIVE) 12/03/17 23:20 Urine Blood NEGATIVE (NEGATIVE) 12/03/17 23:20 Urine Nitrate NEGATIVE (NEGATIVE) 12/03/17 23:20 Urine Bilirubin NEGATIVE (NEGATIVE) 12/03/17 23:20 Urine Urobilinogen 0.2 E.U./dL (0.2 - 1.0) 03/01/18 23:20 Ur Leukocyte Esterase NEGATIVE (NEGATIVE) 12/03/17 23:20 Urine RBC 0-2 /hpf (0-5) 12/03/17 23:20 Urine WBC 0-2 /hpf (0-5) 12/03/17 23:20 Ur Epithelial Cells FEW /lpf (FEW) 12/03/17 23:20 Urine Bacteria FEW /hpf (NONE SEEN) 12/03/17 23:20 - Physical Exam Vitals and I&O: Vital Signs Temp 97.3 F 12/14/17 06:41 Pulse 86 12/14/17 06:41 Resp 19 12/14/17 06:41 BP 133/72 12/14/17 06:41 Pulse Ox 96 12/14/17 06:41 Intake & Output 12/13/17 12/14/17 12/14/17 18:59 06:59 18:59 Intake Total 720 Balance 720 Intake: Oral 720 Other: # Voids 3 Active Medications: Current Medications Acetaminophen (Tylenol) 650 mg PO Q6H PRN PRN Reason: HEADACHE/TEMP ABOVE 100F Stop: 02/01/18 21:55 Acetaminophen/Hydrocodone Bitart ([place] 10 Mg/325 Mg) 1 tab PO Q6H PRN PRN Reason: Pain (Moderate) Stop: 02/02/18 06:52 Last Admin: 12/10/17 14:23 Dose: 1 tab Aspirin (Aspirin Chewable) 81 mg PO DAILY [facility] Stop: 02/02/18 08:59 Last Admin: 12/13/17 08:33 Dose: 81 mg Atorvastatin Calcium (Lipitor) 10 mg PO HS [facility] PRN Reason: Protocol Stop: 02/02/18 20:59 Last Admin: 12/13/17 21:19 Dose: 10 mg Diltiazem HCl (Cardizem Cd) 180 mg PO DAILY [facility] Stop: 02/02/18 08:59 Last Admin: 12/13/17 08:34 Dose: 180 mg Docusate Sodium (Colace) 100 mg PO BID PRN PRN Reason: Constipation Stop: 02/01/18 21:55 Donepezil HCl (Aricept) 5 mg PO HS [facility] Stop: 02/02/18 20:59 Last Admin: 12/13/17 21:20 Dose: 5 mg Famotidine (Pepcid) 40 mg PO DAILY [facility] Stop: 02/02/18 08:59 Last Admin: 12/13/17 08:34 Dose: 40 mg Gabapentin (Neurontin) 600 mg PO BID [facility] Stop: 02/02/18 08:59 Last Admin: 12/13/17 17:44 Dose: 600 mg Guaifenesin/Dextromethorphan (Robitussin Dm) 10 ml PO Q6HR PRN PRN Reason: Cough Stop: 02/09/18 13:04 Last Admin: 12/13/17 08:51 Dose: 10 ml Lisinopril (Zestril) 10 mg PO DAILY [facility] Stop: 02/02/18 08:59 Last Admin: 12/13/17 08:36 Dose: 10 mg Lorazepam (Ativan) 0.5 mg PO Q4HR PRN; Protocol PRN Reason: Anxiety Stop: 01/03/18 01:29 Last Admin: 12/14/17 06:08 Dose: 0.5 mg Magnesium Oxide (Mag-Oxide) 400 mg PO BID PRN PRN Reason: Mg less than 1.9 Stop: 02/01/18 21:55 Memantine (Namenda) 5 mg PO BID [facility] Stop: 02/02/18 08:59 Last Admin: 12/13/17 17:43 Dose: 5 mg Potassium Chloride (Klor-Con) 40 meq PO DAILY PRN PRN Reason: k level less than 3.5 Stop: 02/01/18 21:55 Quetiapine Fumarate (Seroquel) 12.5 mg PO BID [facility] PRN Reason: Protocol Stop: 02/02/18 16:59 Last Admin: 12/13/17 17:44 Dose: 12.5 mg Quetiapine Fumarate (Seroquel) 62.5 mg PO HS [facility] Stop: 02/08/18 20:59 Last Admin: 12/13/17 21:20 Dose: 62.5 mg Trazodone HCl (Desyrel) 50 mg PO HS PRN; Protocol PRN Reason: Insomnia Stop: 02/02/18 20:59 Last Admin: 12/13/17 21:19 Dose: 50 mg Zolpidem Tartrate (Ambien) 5 mg PO HS PRN PRN Reason: Insomnia Stop: 02/02/18 06:37 Last Admin: 12/13/17 21:21 Dose: 5 mg General: No acute distress HEENT: Atraumatic, PERRLA, EOMI Neck: Supple, JVD, Thyromegaly Cardiovascular: Regular rate, Normal S1 Lungs: Normal air movement, Other (has some congestion) Assessment/Plan - Assessment Assessment: metabolic encephalopathy impulse control do mdd margot oa muscle weakness unsteady gait Hyponatremia URI - Plan Plan: Has prn cough syrup. Obtain cxr. FU on chem 7 as K was low. Nutritional Asmnt/Malnutr-PDOC - Dietary Evaluation Malnutrition Findings (Please click <Entered> for more info): Nutritional Asmnt/Malnutrition Start: 12/09/17 14: 40 Text: Status: Active Freq: Document 12/09/17 14:44 LCHENG (Rec: 12/09/17 14:58 LCHENG [facility]) Nutritional Asmnt/Malnutrition Patient General Information Nutritional Screening Moderate Risk Consult Diagnosis psychosis Pertinent Medical Hx/Surgical Hx afib, HTN, hyperlipidemia, aloc, anxiety, depression, psychosis, OA, left LE pain Subjective Information Consult received for chronic wound, amanda score 12. Pt seen sleeping at time of visit , families at bedside. Spoke with RN, pt consumed oatmeal and juice in the morning, about 30% of breakfast. Per EMR, PO intake 50-100% with assist. Per MD note 12/09, BS have been flucuating noted. Current Diet Order/ Nutrition Support mech soft chopped, CCHO, ROSE Pertinent Medications colace, seroquel Pertinent Labs 12/09 Na 137, K 3.4, Cl 105, BUN 27, Cr 0.6, Glucose 160, Ca 9 .1 Nutritional Hx/Data Height 1.7 m Height (Calculated Centimeters) 170.2 Current Weight (lbs) 102.965 kg Weight (Calculated Kilograms) 103.0 Weight (Calculated Grams) 069329.5 [place] Body Weight 135 Body Mass Index (BMI) 35.5 Weight Status Obese GI Symptoms GI Symptoms None Last BM 3/5 x 2 Difficult in: None Skin Integrity/Comment: reddened bruise Per wound care note: chronic wound over scar tissue to right buttock. Current %PO Good (75-100%) Estimated Nutritional Goals BEE in Kcals: Adj wt of IBW Calories/Kcals/Kg 25-30 Kcals Calculated 2820-5153 Protein: Adj wt of IBW Protein g/k Protein Calculated 72 Fluid: ml 1800-2160ml (1ml/kcal) Nutritional Problem 1. Problem Problem altered nutrition related lab values Etiology electrolytes imbalance, hyperglycemia Signs/Symptoms: K 3.4, Glucose 125-194 since adm Intervention/Recommendation Comments 1. Continue with [facility] diet as ordered. Assist pt with meals and encourage oral intake. 2. replace potassium as needed 3. Monitor PO intake, wt, labs and skin integrity 4. F/U as moderate risk in 3-5 days, 12/12-12/14, PO check 12/11 Expected Outcomes/Goals Expected Outcomes/Goals 1. PO intake to meet at least 75% of nutritional needs. 2. Wt stability, skin to remain intact, labs to approach WNL.
[2017-12-14] MEDS: Aspirin 81mg Chewable Tab PO SCH (09:32)
[2017-12-14] MEDS: Guaifenesin DM 10 ML UDC PO PRN (09:35)
[2017-12-14] MEDS: Diltiazem CD 180 mg C24 PO SCH (09:43)
--- NOTE | 2017-12-14 10:43 | Diagnostic Imaging Report ---
CHEST X-RAY: AP view INDICATION: Congestion COMPARISON: 12/07/2017 FINDINGS: Chronic lung changes are noted. No focal consolidation or effusions. Cardiomegaly is noted atherosclerosis. There is age-indeterminate possibly chronic right third rib fracture no evidence of pneumothorax. IMPRESSION: Chronic lung changes with no focal consolidation or evidence of harry CHF Cardiomegaly and atherosclerotic vascular disease. Age-indeterminate, possibly chronic right third rib fracture no evidence of pneumothorax.
--- NOTE | 2017-12-14 19:22 | Progress Notes ---
DATE: 12/14/2017 SUBJECTIVE: The patient in the hospital, hallucinating, talking to self, confused, still responding to internal stimuli, yelling and screaming. Dr. Eastman saw the patient over the weekend noting she remains symptomatic, psychotic, unruly and confused. I spoke with the last week, answered his questions. ASSESSMENT: The patient remains symptomatic, still psychotic, unruly at times, actively yelling and screaming, not safe for a lower level of care, unable to be placed at a lower level of care given her ongoing psychotic symptoms. PLAN: We will continue to monitor. Increase Seroquel today. Medications reviewed. No overt side effects. JOB# [id number]
[2017-12-14] MEDS: Atorvastatin Calcium 10 MG TAB PO SCH (20:46)
[2017-12-15] MEDS: Aspirin 81mg Chewable Tab PO SCH (08:45)
[2017-12-15] MEDS: Diltiazem CD 180 mg C24 PO SCH (08:47)
[2017-12-15 08:48] LABS: ALB/GLOB RATIO 0.9 (1.0-1.8); ALBUMIN 3.1 gm/dL (3.7-5.3); ALKALINE PHOSPHATASE 49 U/L (34-104); ANION GAP 10.1 (7.0-16.0); BILIRUBIN,TOTAL 0.7 mg/dL (0.3-1.0); BUN - UREA NITROGEN 17 mg/dL (7-25); CALCIUM SERUM 9.5 mg/dL (8.6-10.3); CARBON DIOXIDE 28.3 mEq/L (21.0-31.0); CHLORIDE 105 mEq/L (98-107); CREATININE - SERUM 0.7 mg/dL (0.6-1.2); GLUCOSE 145 mg/dL (70-105); POTASSIUM SERUM 3.4 mEq/L (3.5-5.1); SGOT 21 U/L (13-39); SGPT/ALT 18 U/L (7-52); SODIUM SERUM 140 mEq/L (136-145); TOTAL PROTEIN,SERUM 6.4 gm/dL (6.0-8.3)
[2017-12-15] MEDS: Atorvastatin Calcium 10 MG TAB PO SCH (21:13)
--- NOTE | 2017-12-16 00:32 | Progress Notes ---
DATE: 12/15/2017 The patient remains in the hospital, still hallucinating, talking to herself, mumbling to self. The patient is still symptomatic, still psychotic. She is yelling a lot less, screaming a lot less. It is likely she is approaching her baseline, which she seems to have some of the sequelae of an advanced dementia. I did speak with last week. MEDICATIONS: Noted. ASSESSMENT: The patient isolative, paranoid, reclusive but quieter, less yelling episodes. PLAN: We will continue to monitor, continue to titrate and adjust medications. JOB# [id number]
[2017-12-16] MEDS: Diltiazem CD 180 mg C24 PO SCH (08:06)
[2017-12-16] MEDS: Aspirin 81mg Chewable Tab PO SCH (08:09)
[2017-12-16] MEDS: QUEtiapine Fumarate 50 MG, QUEtiapine Fumarate 12.5 MG PO SCH (20:40)
[2017-12-16] MEDS: Atorvastatin Calcium 10 MG TAB PO SCH (20:41)
--- NOTE | 2017-12-16 21:49 | Progress Notes ---
DATE: 12/16/2017 SUBJECTIVE: The patient in the hospital, still noted to be yelling, screaming, hallucinating; however, significant improvement. She is still exhibiting these behaviors, but less of them. On [id number], she is sleeping. She is somewhat tired, but staff noting about an hour ago, she was screaming, so she remains labile, highly unpredictable. The patient with history of advanced dementia. MEDICATIONS: Noted. ASSESSMENT: The patient remains isolative, still yelling, and screaming, but improvement noted. Psychotic symptoms seem to be improving. No EPS. No side effects. PLAN: We will continue to monitor. We will monitor for any side effects and monitor for oversedation. [facility]# [id number]
[2017-12-17] MEDS: Aspirin 81mg Chewable Tab PO SCH (09:08)
[2017-12-17] MEDS: Diltiazem CD 180 mg C24 PO SCH (09:10)
--- NOTE | 2017-12-17 17:54 | Progress Notes ---
DATE: 12/17/2017 The patient remains in the hospital, still with yelling and screaming episodes but less. Seems to be improved, more calm, more cooperative. I did have concerns with medication side effects. She seems somewhat over sedated yesterday morning. I spoke with daughter yesterday morning. was also there. I answered their questions, updated them, discussed her medications and addressed any concerns and talked about our treatment plan and disposition plan listed, did agree with. The patient is sleeping this morning, but she is arousable on exam, still confused, disoriented. Medications were noted. ASSESSMENT: The patient remains isolative, still with unruly behaviors, screaming behaviors, but overall calmer. Psychotic symptoms seemed to be dissipating. No EPS. Sedation less. RECOMMENDATION PLAN: We will continue to monitor. I did decrease dosing of Seroquel yesterday. [facility]# [id number]
[2017-12-17] MEDS: Atorvastatin Calcium 10 MG TAB PO SCH (21:05)
[2017-12-17] MEDS: QUEtiapine Fumarate 50 MG, QUEtiapine Fumarate 12.5 MG PO SCH (21:06)
[2017-12-18] MEDS: Aspirin 81mg Chewable Tab PO SCH (09:18)
[2017-12-18] MEDS: Diltiazem CD 180 mg C24 PO SCH (09:18)
[2017-12-18] MEDS: Atorvastatin Calcium 10 MG TAB PO SCH (20:59)
[2017-12-18] MEDS: Hydrocodone/APAP 10 mg/325 mg Tab PO PRN (21:00)
[2017-12-18] MEDS: QUEtiapine Fumarate 50 MG, QUEtiapine Fumarate 12.5 MG PO SCH (21:00)
--- NOTE | 2017-12-19 01:15 | Progress Notes ---
DATE: 12/18/2017 The patient seen, chart reviewed, discussed with staff. The patient was seen today 12/18/2017. Still mumbling to sell, talking to self, still with ongoing psychotic symptoms. She is calmer, less yelling episodes, less agitation. She is more awake and alert. There were some concerns about medication side effects and over sedation, but she seems far less sedated, more awake and alert, now quietly psychotic. The patient likely approaching her baseline. As long as she is not yelling and screaming and unruly, she can likely be cared for at a lower level of care. Medications were noted. ASSESSMENT: The patient is still symptomatic, responding to internal stimuli, but likely approaching her baseline. Given her dementia diagnosis, these symptoms may not be completely treatable and extinguishable, but as long as she is not agitated and not yelling and screaming there has been improvement noted. [facility]# [id number]
--- NOTE | 2017-12-19 08:25 | Progress Notes ---
DATE: 12/19/2017 The patient is currently in the hospital, still mumbling to self, at times yelling but significantly calmer, seems to be worsening at nighttime, calmer during the daytime with some bouts of yelling and screaming episodes. The patient with ongoing psychosis, likely approaching her baseline. I have attempted to increase Seroquel in the past but she became too oversedated. We will continue at current dose. Medications were noted. Discussed with staff. We are also still trying to work on placement and try to get the patient into a correction. JOB# [id number]
[2017-12-19] MEDS: Aspirin 81mg Chewable Tab PO SCH (08:46)
[2017-12-19] MEDS: Diltiazem CD 180 mg C24 PO SCH (08:49)
[2017-12-19] MEDS: QUEtiapine Fumarate 50 MG, QUEtiapine Fumarate 12.5 MG PO SCH (20:24)
[2017-12-19] MEDS: Atorvastatin Calcium 10 MG TAB PO SCH (20:24)
--- NOTE | 2017-12-20 08:19 | Progress Notes ---
DATE: 12/20/2017 The patient in the hospital, mumbling to self, significantly calmer, but still yelling at times, still responding, rambling, nonsensical, disoriented, likely she is approaching her baseline. Staff are noting improvement in regards to her yelling and screaming episodes which have lessened. Medications were noted. ASSESSMENT: The patient seems to be improving, less yelling and screaming episodes, still confused. PLAN: We will continue to monitor. We are trying to confirm a safe discharge plan for this patient. JOB# [id number]
[2017-12-20] MEDS: Aspirin 81mg Chewable Tab PO SCH (09:16)
[2017-12-20] MEDS: Diltiazem CD 180 mg C24 PO SCH (09:18)
[2017-12-20] MEDS: Atorvastatin Calcium 10 MG TAB PO SCH (21:10)
[2017-12-20] MEDS: QUEtiapine Fumarate 50 MG, QUEtiapine Fumarate 12.5 MG PO SCH (21:11)
[2017-12-21] MEDS: Diltiazem CD 180 mg C24 PO SCH (10:53)
[2017-12-21] MEDS: Aspirin 81mg Chewable Tab PO SCH (10:53)
[2017-12-21] MEDS: Hydrocodone/APAP 10 mg/325 mg Tab PO PRN (17:41)
[2017-12-21] MEDS: QUEtiapine Fumarate 50 MG, QUEtiapine Fumarate 12.5 MG PO SCH (21:49)
[2017-12-21] MEDS: Atorvastatin Calcium 10 MG TAB PO SCH (21:50)
--- NOTE | 2017-12-21 23:23 | Progress Notes ---
DATE: 12/21/[address] Mahmood. SUBJECTIVE: Case was discussed with staff of the patient, reviewed records. The patient continues to have episodes of yelling and screaming. Continues to be demented and confused. She is a well known case to me because I have seen her before covering for Dr. Mahmood. She continues to have poor insight, unpredictable, impulsive, needing redirection, rambling, nonsensical, and disoriented. No side effects to the medications, no sedation, no nausea, and no extrapyramidal symptoms. PLAN: She is on Namenda 5 mg twice a day and Seroquel 62.5 mg at bedtime and 12.5 mg twice a day. I will be increasing the dose of Seroquel to 25 mg twice a day. Also, at this time to increase her Namenda dose and I will be increasing it to 10 mg twice a day and so far no side effects to the medications, no sedation, no nausea, and no extrapyramidal symptoms. We will continue to work with the patient in group therapy, milieu therapy, and adjust the medications as needed. JOB# [id number]
[2017-12-22] MEDS: Aspirin 81mg Chewable Tab PO SCH (09:58)
[2017-12-22] MEDS: Diltiazem CD 180 mg C24 PO SCH (17:49)
--- NOTE | 2017-12-22 21:39 | Progress Notes ---
DATE: 12/22/2017 Case is discussed with staff of the patient, reviewed records. The patient continues to be unpredictable, impulsive, confused with episodes of agitation, yelling and screaming. She is compliant with the medication with no side effects, no sedation, no nausea, no extrapyramidal symptoms. I did increase her dose of Namenda yesterday to 10 mg twice a day and also increase her Seroquel to 12.5 mg twice a day to 25 mg twice a day and so far no side effects, no sedation, no nausea, no extrapyramidal symptoms. The patient needs further stabilization. We will continue outpatient group therapy, milieu therapy, and adjust medications as needed. [facility]# [id number]
[2017-12-22] MEDS: QUEtiapine Fumarate 50 MG, QUEtiapine Fumarate 12.5 MG PO SCH (22:10)
[2017-12-22] MEDS: Atorvastatin Calcium 10 MG TAB PO SCH (22:10)
--- NOTE | 2017-12-22 22:45 | Progress Notes ---
DATE: 12/13/2017 SUBJECTIVE: Chart reviewed and the patient interviewed. Also discussed the patient's condition with the staff and reviewed records and labs. The patient is still actively hallucinating and actively responding to stimuli. She is talking to herself and she is confused. The patient also is still yelling and screaming for no reason and needs lots of redirections. Otherwise, the patient is compliant with taking her medications with no side effect. ASSESSMENT: The patient is still psychotic. TREATMENT PLAN: Continue close observation and monitoring her behavior. Also, continue current psychotropic medications and follow up closely. JOB# [id number]
[2017-12-23] MEDS: Diltiazem CD 180 mg C24 PO SCH (08:07)
[2017-12-23] MEDS: Aspirin 81mg Chewable Tab PO SCH (08:08)
[2017-12-23] MEDS: Hydrocodone/APAP 10 mg/325 mg Tab PO PRN (08:17)
[2017-12-23] MEDS ORDERED: Albuterol/Ipratropium Neb 3 ML AERS HHN PRN (10:59)
[2017-12-23] MEDS: Albuterol/Ipratropium Neb 3 ML AERS HHN SCH ×2 (14:10→20:42)
[2017-12-23] MEDS: Atorvastatin Calcium 10 MG TAB PO SCH (21:36)
[2017-12-23] MEDS: QUEtiapine Fumarate 50 MG, QUEtiapine Fumarate 12.5 MG PO SCH (21:37)
--- NOTE | 2017-12-24 01:17 | Progress Notes ---
DATE: 12/23/[address] Mahmood. Case was discussed with staff of the patient, and reviewed treatment plans and goals. The patient is in agreement. The patient continues to have episodes of yelling and screaming. Continues to be unpredictable, impulsive, needing redirection, very poor insight, and unable to make safe plan for self-care. He tolerated the increase in her medication with no side effects. We will continue outpatient in group therapy, milieu therapy, and adjust medication as needed. JOB# [id number]
[2017-12-24] MEDS: Albuterol/Ipratropium Neb 3 ML AERS HHN SCH ×4 (02:08→20:32)
[2017-12-24] MEDS: Diltiazem CD 180 mg C24 PO SCH (09:59)
[2017-12-24] MEDS: Aspirin 81mg Chewable Tab PO SCH (10:00)
[2017-12-24 18:37] LABS: % BASOPHILS 0.5 % (0.0-2.0); % EOSINOPHILS 3.6 % (0.0-5.0); % LYMPHOCYTES 28.2 % (20.0-50.0); % MONOCYTES 10.9 % (2.0-10.0); % NEUTROPHILS 56.8 % (40.0-80.0); EOSINOPHILE ABSOLUTE 0.3 Th/cmm (0.1-0.4); HEMATOCRIT 35.7 % (41.0-60); HEMOGLOBIN 11.7 gm/dL (12-16); LYMPHOCYTE ABSOLUTE 2.1 Th/cmm (1.5-3.0); MEAN CELL VOLUME 95.5 fl (81-100); MEAN CORPUSCULAR HEMOGLOBIN 31.2 pg (27.0-31.0); MEAN CORPUSCULAR HGB CONC 32.7 pg (28.0-36.0); MEAN PLATELET VOLUME 8.9 fl; MONOCYTE ABSOLUTE 0.8 Th/cmm (0.3-1.0); NEUTROPHILE ABSOLUTE 4.3 Th/cmm (1.8-8.0); PLATELET COUNT 209 Th/cmm (150-400); RED BLOOD COUNT 3.74 Mil/cmm (3.80-5.20); RED CELL DISTRIBUTION WIDTH 14.2 % (11.5-20.0); WHITE BLOOD COUNT 7.5 Th/cmm (4.8-10.8)
[2017-12-24 18:54] LABS: ANION GAP 5.6 (7.0-16.0); BUN - UREA NITROGEN 37 mg/dL (7-25); CALCIUM SERUM 9.4 mg/dL (8.6-10.3); CARBON DIOXIDE 31.3 mEq/L (21.0-31.0); CHLORIDE 109 mEq/L (98-107); CREATININE - SERUM 0.7 mg/dL (0.6-1.2); GLUCOSE 218 mg/dL (70-105); POTASSIUM SERUM 3.9 mEq/L (3.5-5.1); SODIUM SERUM 142 mEq/L (136-145)
[2017-12-24] MEDS: QUEtiapine Fumarate 50 MG, QUEtiapine Fumarate 12.5 MG PO SCH (21:30)
[2017-12-24] MEDS: Atorvastatin Calcium 10 MG TAB PO SCH (21:30)
--- NOTE | 2017-12-24 22:10 | Progress Notes ---
DATE: 12/24/2017 The patient in the hospital, still with some episodes of yelling and screaming but much less. She is more awake and alert. She remains somewhat impulsive and unpredictable, but likely approaching her baseline. at bedside. Daughter at bedside. admits that before her decline she had "tendencies of confusion." They are concerned and hoping that she makes a full recovery, although I have discussed that given her presentation and her age and her medical problems and her decline it is likely that she will not make recovery back to what they are anticipating or expecting. I am currently pending placement at this time. I answered their questions. The patient is sleeping well, eating well. Dr. Aguero seeing the patient over the past few days, noting that the patient with some episodes of confusion and needing further stabilization. Medications were noted. PLAN: We will continue to monitor and titrate and adjust medications. I did discuss with family at length today. [facility]# [id number]
[2017-12-25] MEDS: Albuterol/Ipratropium Neb 3 ML AERS HHN SCH ×4 (01:28→19:07)
[2017-12-25] MEDS: Diltiazem CD 180 mg C24 PO SCH (08:27)
[2017-12-25] MEDS: Aspirin 81mg Chewable Tab PO SCH (08:27)
--- NOTE | 2017-12-25 18:51 | Progress Notes ---
DATE: 12/25/2017 The patient in the hospital, some episodes of yelling and screaming. She is yelling right now, but it is significantly less than for a smaller period of time. The patient seems psychotic, responding to internal stimuli. We are also trying to work on a safe discharge plan at this time. We have been having trouble with placement given her behaviors and her ongoing symptoms. ASSESSMENT: The patient remains symptomatic, gravely disabled. We cannot discharge her at this time given her ongoing behaviors. PLAN: We will continue to monitor. We will consider adding an antidepressant to her regimen as there is some evidence that this may help with her mood and to help calm her down. We will monitor and follow up. Unfortunately, she cannot tolerate a higher dose of Seroquel as it does cause over sedation. [facility]# [id number]
[2017-12-25] MEDS: Atorvastatin Calcium 10 MG TAB PO SCH (20:39)
[2017-12-25] MEDS: QUEtiapine Fumarate 50 MG, QUEtiapine Fumarate 12.5 MG PO SCH (20:40)
[2017-12-26] MEDS: Albuterol/Ipratropium Neb 3 ML AERS HHN SCH ×4 (00:38→19:17)
[2017-12-26] MEDS: Diltiazem CD 180 mg C24 PO SCH (08:26)
[2017-12-26] MEDS: Aspirin 81mg Chewable Tab PO SCH (08:27)
[2017-12-26] MEDS: Escitalopram Oxalate 5 mg Tab PO SCH (10:00)
[2017-12-26] MEDS: Atorvastatin Calcium 10 MG TAB PO SCH ×2 (21:00→21:11)
[2017-12-26] MEDS: QUEtiapine Fumarate 50 MG, QUEtiapine Fumarate 12.5 MG PO SCH ×2 (21:00→21:11)
[2017-12-27] MEDS: Albuterol/Ipratropium Neb 3 ML AERS HHN SCH ×4 (01:21→19:47)
--- NOTE | 2017-12-27 07:56 | Progress Notes ---
DATE: SUBJECTIVE: The patient was seen and evaluated. The patient's chart reviewed. This is Dr. Warren covering for Dr. Mahmood. IDENTIFYING DATA: An 82-year-old female from [facility], who had been screaming, unruly behavior, disorganized. She is stating "I want to get back to you, I want to go back to you." Overnight nursing staff reported the patient continues to respond heavily on voices as early as yesterday primary medical doctor noted the patient continues to respond also. MENTAL STATUS EXAMINATION: Disorganized, responding, some thought blocking, minimally interactive. ASSESSMENT AND PLAN: This is an 82-year-old female, cognitively impaired, severe dementia with behavior disturbance and psychosis. We will continue with primary psychiatrist's treatment plan and goals with the quetiapine 62.5, Namenda 10 p.o. b.i.d., gabapentin 600 p.o. b.i.d., Lexapro 5 mg was recently added and Aricept at 5 to target the patient still residual melancholic and aggressive state. JOB# [id number]
[2017-12-27] MEDS: Diltiazem CD 180 mg C24 PO SCH (08:20)
[2017-12-27] MEDS: Aspirin 81mg Chewable Tab PO SCH (08:20)
--- NOTE | 2017-12-27 13:33 | Progress Notes ---
DATE: 12/27/2017 SUBJECTIVE: The patient was seen and evaluated. The patient's chart reviewed. Covering for Dr. Mahmood. Overnight nursing staff reported the patient continues to be observed, respond to questions. Today on [id number] evaluation, the patient observed to be easily irritable, very angry on interview, selectively mute, does not engage in conversation. MENTAL STATUS EXAMINATION: Observed, thought blocking, disengaged, selectively mute. ASSESSMENT AND PLAN: An 82-year-old female with severe cognitive impairment with dementia, behavioral disturbance, selectively mute, disengaged in interview. We will continue with the current medication regimen to target the patient's disorganized state, tolerating recent addition of Aricept. [facility]# [id number]
[2017-12-27] MEDS: Escitalopram Oxalate 5 mg Tab PO SCH (15:18)
[2017-12-27] MEDS: QUEtiapine Fumarate 50 MG, QUEtiapine Fumarate 12.5 MG PO SCH (21:21)
[2017-12-27] MEDS: Atorvastatin Calcium 10 MG TAB PO SCH (21:22)
[2017-12-28] MEDS: Albuterol/Ipratropium Neb 3 ML AERS HHN SCH ×4 (00:34→18:52)
[2017-12-28] MEDS: Aspirin 81mg Chewable Tab PO SCH (09:12)
[2017-12-28] MEDS: Diltiazem CD 180 mg C24 PO SCH (09:12)
[2017-12-28] MEDS: Escitalopram Oxalate 5 mg Tab PO SCH (09:12)
[2017-12-28] MEDS: QUEtiapine Fumarate 50 MG, QUEtiapine Fumarate 12.5 MG PO SCH (21:03)
[2017-12-28] MEDS: Atorvastatin Calcium 10 MG TAB PO SCH (21:03)
--- NOTE | 2017-12-28 23:35 | Progress Notes ---
DATE: 12/28/2017 SUBJECTIVE: The patient is currently in the hospital. She seems somewhat calmer. She remained somewhat disengaged, selectively mute, still moaning at times, yelling at times, but significantly less. Seems to be tolerating treatment well. Significantly calmer, more redirectable. ASSESSMENT: The patient is likely approaching baseline and approaching a more stable behavioral pattern, less yelling, less agitation, less psychosis, less responding to internal stimuli. These behaviors continue, but to a much smaller extent and lesser extent. We are trying to help the patient with placement. It is unclear where she is going to go at this time. She may be able to go to [facility]. PLAN: We will try to get confirmation of placement. We will monitor for further 24 hours. The patient is tolerating treatment well. JOB# [id number]
[2017-12-29] MEDS: Albuterol/Ipratropium Neb 3 ML AERS HHN SCH ×2 (00:16→07:14)
[2017-12-29] MEDS: Aspirin 81mg Chewable Tab PO SCH (10:00)
[2017-12-29] MEDS: Escitalopram Oxalate 5 mg Tab PO SCH (10:00)
[2017-12-29] MEDS: Diltiazem CD 180 mg C24 PO SCH (10:00)
--- NOTE | 2017-12-29 16:02 | Discharge Summary ---
DATE OF DISCHARGE: 12/29/2017 JUSTIFICATION FOR HOSPITALIZATION: Yelling, screaming, agitation. HISTORY OF PRESENT ILLNESS: An 82-year-old female who I saw at [facility] due to yelling, screaming behaviors, unruly behaviors, yelling nonsensically, "I want to go back, I want to go back, I want to go back, I want to go back." The patient is a poor historian, talking to self, mumbling to self. Generally psychotic. PAST PSYCHIATRIC HISTORY: Dementia, dementia with psychosis. SOCIAL HISTORY: involved. Daughter involved. The patient had been at a penitentiary. MEDICATIONS: Noted. MENTAL STATUS EXAMINATION: Please see full psych eval for details. PROVISIONAL DIAGNOSES: Dementia with behaviors, psychosis, unspecified; mood, unspecified; anxiety, unspecified. PAST MEDICAL HISTORY: Please see full H and P. HOSPITAL COURSE: After initial assessment, the patient started on medications to address dementia, address psychosis, address her agitation. Over the course of the hospitalization, her mood, improved affect improved, yelling decreased. She was less psychotic, less mumbling to self, less talking to self. Sleeping better. I did speak with and daughter a few times. Placement was confirmed towards the latter end of her hospitalization. She was discharged. CONDITION UPON DISCHARGE: Improved. Fair ADLs, allowing ADLs. No combative behaviors. Remains confused, disoriented, less yelling, less screaming, less psychosis. No combative behaviors, no dangerous behaviors, better impulse control. PROVISIONAL DIAGNOSES: Dementia with dementia behaviors, psychosis, unspecified; mood, unspecified; anxiety, unspecified. MEDICAL: Please see full H and P. PROGNOSIS: The patient follows up with penitentiary and remains compliant. Prognosis will improve, otherwise guarded. [facility]# [id number]
== END 2017-12-29 14:30 | DRG 885 ==
LOC: ER 21:28 → GERO 12-04 00:30 → GERO2 12-04 17:54 → GERO 12-04 17:55
PROVIDERS: ADMIT Psychiatry & Neurology Psychiatry; ATTEND Psychiatry & Neurology Psychiatry
DX: F29 Unspecified psychosis not due to a substance or known physiological condition (principal); G93.41 Metabolic encephalopathy; F03.91 Unspecified dementia, unspecified severity, with behavioral disturbance; I48.91 Unspecified atrial fibrillation; F39 Unspecified mood [affective] disorder; F41.9 Anxiety disorder, unspecified; I10 Essential (primary) hypertension; E78.5 Hyperlipidemia, unspecified; F63.9 Impulse disorder, unspecified; M19.90 Unspecified osteoarthritis, unspecified site; R26.81 Unsteadiness on feet; K21.9 Gastro-esophageal reflux disease without esophagitis; M62.81 Muscle weakness (generalized); Z79.82 Long term (current) use of aspirin
CPT/HCPCS: 36415-UA; 71045-TC; 80048-TC; 80053-TC; 81001-TC; 83036-90; 83735-TC; 85007-TC; 85025-TC; 85027-TC; 93005; 94640; 94760; 97530; J1200; J1630; J1644; J2001; J2060; J3230; J3475; J3480; X3401; X3904; Z7610